=== PATIENT | female | born 1965 | race Caucasian/White ===

== ENCOUNTER 2019-03-29 01:51 | Emergency (ER) | payer OTHER ==
[2019-03-29 02:09] VITALS: BP 130/80; PULSE 69; RESP 18; TEMP 97.8
[2019-03-29] MEDS ORDERED: IBUPROFEN 600 MG TAB PO STA (02:21)
[2019-03-29] MEDS ORDERED: ACETAMINOPHEN TAB 325 MG TAB PO STA (02:21)
--- NOTE | 2019-03-29 02:21 | ED ---
Extremity Problem HPI - General Chief complaint: Extremity Problem,Nontraumatic Stated complaint: Hypothermia Time Seen by Provider: 03/29/19 01:53 Source: patient, EMS Mode of arrival: EMS - History of Present Illness Initial comments: 53-year-old female patient presents to the emergency department today for evaluation of pain to her feet and hands. [facility] for the last hour and a half. Patient states she started 6 pain and numbness to her hands and feet. Patient is concerned she may have hypothermia. She denies any other symptoms or concerns. Patient denies any recent rash, fever, chills, shortness breath, chest pain, abdominal pain, nausea, vomiting, diarrhea, constipation, back pain, numbness, tingling, dizziness, weakness, hematuria, dysuria, urinary urgency, urinary frequency, headache, visual changes, or any other complaints. - Related Data Allergies Allergy/AdvReac Type Severity Reaction Status Date / Time No Known Allergies Allergy Verified 03/29/19 02:32 Review of Systems ROS Statement: Those systems with pertinent positive or pertinent negative responses have been documented in the HPI. ROS Other: All systems not noted in ROS Statement are negative. Past Medical History Past Medical History: Asthma, Hypertension History of Any Multi-Drug Resistant Organisms: None Reported Past Surgical History: No Surgical Hx Reported Past Psychological History: Depression Smoking Status: Former smoker Past Alcohol Use History: None Reported Past Drug Use History: None Reported General Exam General appearance: alert, in no apparent distress, other (Physical well- developed, well-nourished adult female patient in no acute distress. Vital signs upon presentation are temperature 97.8F, pulse 69, respirations 18, blood pressure 130/80, pulse ox 95% on room air.) Respiratory exam: Present: normal lung sounds bilaterally. Absent: respiratory distress, wheezes, rales, rhonchi, stridor Cardiovascular Exam: Present: regular rate, normal rhythm, normal heart sounds. Absent: systolic murmur, diastolic murmur, rubs, gallop, clicks Extremities exam: Present: normal inspection, full ROM, normal capillary refill, other (There is erythema noted to the bilateral hands and feet. Skin is pink, warm, dry. Cap refills less than 3 seconds. Radial pulses 2+ and equal bilaterally. Pedal and posttibial pulses 2+ and equal bilaterally. No evidence for [place] bite or skin discoloration.). Absent: tenderness, pedal edema, joint swelling, calf tenderness Neurological exam: Present: alert, oriented X3, CN II-XII intact Psychiatric exam: Present: normal affect, normal mood Skin exam: Present: warm, dry, intact, normal color. Absent: rash Course Vital Signs 03/29/19 02:01 Temperature 97.8 F Pulse Rate 69 Respiratory 18 Rate Blood Pressure 130/80 O2 Sat by Pulse 95 Oximetry Medical Decision Making - Medical Decision Making 53-year-old female patient presents to the emergency department today for evaluation of pain to her hands and feet after being exposed to cold for the last hour and a half. Physical examination is unremarkable. She has good neurovascular status. No evidence for frostbite. She is given Tylenol Motrin for pain control. She is instructed to follow-up with her primary care physician for recheck in 1-2 days. Return parameters discussed in detail. She verbalizes understanding and agrees with this plan. Disposition Clinical Impression: Exposure to environmental cold Disposition: HOME SELF-CARE Condition: Good Additional Instructions: Follow up with the primary care physician for recheck in 1-2 days. Return for any new, worsening, or concerning symptoms. Is patient prescribed a controlled substance at d/c from ED?: No Referrals: None,Stated [Primary Care Provider] - 1-2 days Time of Disposition: 02:21
== END 2019-03-29 02:45 | disposition home or self-care (01) ==
LOC: EC 01:51
DX: L53.9 Erythematous condition, unspecified (principal); M79.671 Pain in right foot; M79.672 Pain in left foot; M79.641 Pain in right hand; M79.642 Pain in left hand; R20.0 Anesthesia of skin; Z87.891 Personal history of nicotine dependence; X31.XXXA Exposure to excessive natural cold, initial encounter
CPT/HCPCS: 99284